=== PATIENT | female | born 1955 | race Caucasian/White ===

== ENCOUNTER → 2018-01-27 | Day surgery (SDC) | payer OTHER ==
[~2018-01-27] MED LIST: ACETAMINOPHEN 1000 MG/100 ML 100 ML IV ONE; ACETAMINOPHEN/HYDROcodone 325 MG/5 MG TAB ONE; BACITRACIN IM FOR SOLN 50,000 UNIT VIAL ONE; GENTAMICIN SULFATE 80 MG/2 ML VIAL ONE; KETOROLAC TROMETHAMINE 30 MG/ML (IVP) VIAL IV PUSH ONE; LACTATED RINGER'S 1,000 ML BAG IV ONE; LACTATED RINGER'S 1000 ML INJ 1,000 ML ONE; LIDOCAINE HCL 1% PF 30 ML VIAL ONE; MEPERIDINE HCL 25 MG/ML VIAL ONE; MIDAZOLAM HCL 2 MG/2 ML VIAL ONE; ONDANSETRON HCL 4 MG/2 ML VIAL IV PUSH ONE; PROPOFOL 200 MG/20 ML AMP IV ONE; SODIUM CHLORIDE 0.9% 20 ML VIAL ONE; ceFAZolin INJ 1,000 MG VIAL ONE
--- NOTE | 2018-01-27 13:07 | TN ---
cc: Osorio Mcgill MD DATE OF SURGERY: 01/27/2018 PREOPERATIVE DIAGNOSES: 1. Ptosis enhanced breasts. 2. Lipodystrophy. PROCEDURES PERFORMED: Removal and replacement of implants with a circumvertical mastopexy and SlimLipo. SURGEON: Osorio Mcgill MD ANESTHESIA: LMA general. TOTAL I'S AND O'S: 2820 in, 1925 out. TOTAL ENERGY: 20/20, 70,000 joules. PROCEDURE: She was properly consented, marked and anesthetized, the skin sterilized with Betadine solution, sterile draping applied. I applied a breast block utilizing a total of 30 mL of 1% lidocaine with epinephrine mixed with 0.25% Marcaine. Through the previous infraareolar vertical incision the incision was done utilizing 15 blade. Encountered the capsule. The implant was removed without any difficulties. Irrigation with antibiotics was carried out. Exam of the breast showed no obvious pathology. Lateral and inferior capsulorrhaphies were done utilizing 0 silk in a multiple locking, running fashion anterior to achieve the approximation of the anterior axillary line and the previous inframammary incision. At this point, the radial capsulotomies were done where needed in order to accommodate the new implant. Isolation of the NAC was done from the beginning of the case. Now, the skin was isolated with Tegaderm. The implant was introduced utilizing no-touch technique and the wound was closed in multiple 2-0 Monocryl suture layers in the breast parenchyma, capsule and dermis. In the similar fashion, the contralateral side was approached in exactly the same manner as previously described. The previous preop markings were set at the NAC at about 20-20.5 cm from the sternal notch and 42 mm areolar diameter. At this point, as the patient was set up, tailor tacking techniques were properly performed utilizing temporary surgical nan. The excess skin was marked. The nan were removed. The skin was deepithelialized and the wounds were closed as follows: The vertical and horizontal wounds were closed utilizing 2-0 Monocryl suture in the dermis and subcutaneous and the areolar was closed in a combination of pinwheel technique utilizing 2-0 PTFE sutures, which was reinforced with 2-0 Quill. After that the Prineo Dermabond was utilized for the skin. Again, the contralateral side was approached in exactly the same manner as previously addressed. I should mention that implant placed was a SRF Jovita Inspira 415 mL. The serial number of the right breast implant was [id number] and on the left [id number]. From there, after this procedure was properly performed, tumescent fluid was properly applied into the upper, lower abdomen, flanks and back. Again, a total of 2820 was applied. The tumescent is a combination in 1000 mL of normal saline, 30 mL of lidocaine plain and 1 mL of epinephrine 1:1000. SlimLipo laser energy was delivered 20/20, leaving 40,000 joules on the upper and lower abdomen and 10,000 to the upper and lower back. Again, a total of 60,000 joules. Utilizing the puncture wounds after delivering the energy, utilizing 3.5 mm MicroAire cannula, evacuation of the fat was removed. The fat elements and cellular elements were removed. I aspirated 900 from the abdomen and 500 from the left upper/lower back and 525 from the right upper/lower back for a grand total of 1925. Each and every one of the puncture wounds were closed utilizing 5-0 chromic suture and Steri-Strip applied. A snug brassiere and a girdle were applied at the end of the case. Good viability of all tissue was noted at the end of the case. The patient was awakened, extubated in the operating room and transferred back to postanesthesia care unit in stable condition. No complications appreciated. The patient tolerated the procedure fairly well. MD MYCHAL Gregg/DEE DEE , 12:21 PM , 01:05 PM
== END | disposition home or self-care (01) ==
LOC: ESDC 06:55
PROVIDERS: ATTEND Plastic Surgery
DX: Z41.1 Encounter for cosmetic surgery (principal)
CPT/HCPCS: 00300; 00400; 00402; 15877; 19316; 19325; 19328; C1789; J0131; J0690; J1580; J1885; J2175; J2250; J2405; J3010; J7120